=== PATIENT | male | born 1960 | race American Indian/Alaskan Native ===

== ENCOUNTER 2019-05-18 09:31 | Outpatient (CLI) | payer OTHER ==
--- NOTE | 2019-05-18 10:46 | XRay Report ---
BILATERAL KNEES, 2 VIEWS INDICATION: Bilateral knee pain. COMPARISON: None. IMPRESSION: No acute osseous or soft tissue abnormality. Minimal osteoarthritic joint space narro wing is noted in the medial compartment. Small enthesophytes are noted along the superior patella at the insertion of the quadriceps tendons. BILATERAL HIPS, 2 VIEWS WITH PELVIS INDICATION: Hip pain. COMPARISON: None. IMPRESSION: No acute osseous or soft tissue abnormality. Mild osteoarthritic changes are identifi ed bilaterally, right greater than left. No evidence for fracture, dislocation or osteonecrosis. The pelvic bones are grossly intact. RIGHT HAND, 2 VIEWS INDICATION: PAIN IN RIGHT HAND. COMPARISON: None. IMPRESSION: No acute osseous or soft tissue abnormality. 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 Fusion at the DIP joint of the third digit is also noted which is of un certain etiology, correlate with surgical history. The remaining joint spaces are unremarkable. Signer Name: Harish Haynes Jr, MD Signed: 05/18/2019 10:41 AM Workstation Name: [id number]
== END 2019-05-18 09:32 | disposition home or self-care (01) ==
LOC: XRAY 09:31
PROVIDERS: ATTEND Internal Medicine
DX: M13.862 Other specified arthritis, left knee (principal); M13.861 Other specified arthritis, right knee; M13.841 Other specified arthritis, right hand; M13.852 Other specified arthritis, left hip; M13.851 Other specified arthritis, right hip
CPT/HCPCS: 73521